=== PATIENT | female | born 1965 | race Caucasian/White ===

== ENCOUNTER 2021-09-01 16:35 | Emergency (ER) | payer OTHER ==
[~2021-09-01] VITALS: Ht 167.6 cm; Wt 113.4 kg
[2021-09-01] MEDS ORDERED: LISINOPRIL20 MG PO (16:46)
[2021-09-01] MEDS ORDERED: LASIX20 MG PO (19:51)
[2021-09-01] MEDS ORDERED: MEDROLPACK PO (19:51)
== END 2021-09-01 20:28 ==
LOC: ER 16:35
DX: R60.0 Localized edema (principal)